=== PATIENT | female | born 1990 | race African-American/Black ===

== ENCOUNTER 2020-06-21 13:42 | Outpatient (CLI) | payer OTHER, SELFPAY ==
--- NOTE | ~2020-06-21 | US_ITS ---
EXAMINATION: US OB /maternal detail DATE: 06/21/2020 15:07 INDICATION: survey TECHNIQUE: Multiple obstetric sonographic images performed. FINDINGS: No prior studies for comparison. There is a single living fetus in vertex presentation. The placenta is anterior without placenta pre via. Placenta is 4.3 cm to the cervix. Amniotic fluid volume is normal. RADHA measures 11.8 cm cm., (No rmal range for gestational age 29.3-21.2 cm) cardiac activity and movement is noted with a heart rate of 165 beats per minute. The following anatomy was identified as normal: 4 chamber heart 3 vessel cord cord insertion kidneys urinary bladder stomach spine diaphragm ventricles cisterna magna cerebellum The following biometric data were obtained: BPD: 42mm corresponds to gestational age 18 weeks 5 days. Head circumference: 150 mm corresponds to gestational age 18 weeks 0 days. Abdominal circumference: 134 mm corresponds to gestational age 18 weeks 6 days. Femur length: 25 mm corresponds to gestational age 17 weeks 4 days. Head circumference to abdominal circumference ratio: 1.12 (normal range for expected gestational age is 1.08-1.27). Estimated weight: 232 grams +/- 35 grams using Hadlock method. IMPRESSION: 1: Single living intrauterine with an estimated gestational age of 18weeks 2days by current ultrasound measurements, with an EDC of 11/20/2020 in vertex presentation. 2. Normal survey. Reviewed, dictated and finalized at location A. OGRAPH MOUNTER IMPRESSION: 1: Single living intrauterine with an estimated gestational age of 18 weeks 2days by current ultrasound measurements, with an EDC of 11/20/2020 in ve rtex presentation. 2. Normal survey.
== END 2020-06-21 13:43 | disposition home or self-care (01) ==
PROVIDERS: Visit Provider Physician Assistant
DX: Z34.92 Encounter for supervision of normal pregnancy, unspecified, second trimester (principal); Z3A.18 18 weeks gestation of pregnancy
CPT/HCPCS: 76805

== ENCOUNTER 2020-08-24 12:46 | Outpatient (CLI) | payer OTHER, SELFPAY ==
--- NOTE | ~2020-08-24 | US_ITS ---
EXAMINATION: US OB follow up DATE: 08/24/2020 13:25 INDICATION: growth assessment during third trimester TECHNIQUE: Real-time ultrasound of the pelvis was performed. The interpreting radiologist was not pre sent for the study. COMPARISON: 06/21/2020 FINDINGS: There is a single living fetus in transverse lie. The placenta is anterior. cardiac a ctivity and movement are noted. heart rate is 147 beats per minute (bpm). The amniotic fl uid index is 17.3 cm which is normal. The following biometric data were obtained: Biparietal diameter (BPD): 7.0 cm; head circumference (HC): 26.0 cm; abdominal circumference (AC): 24 .7 cm; femur length (FL): 4.9 cm. The femoral length to biparietal diameter ration is greater than two standard deviations below the ma in. These measurements are otherwise concordant. Estimated weight is 1172 g +/- 175 g, which correlates with the 64th percentile when 11/20/2020 i s used as estimated date of delivery. As single measurements, these parameters are each equal to the following estimated gestational ages w ith ranges of +/- 2 standard deviations: BPD: 28 weeks 2 days +/- 2 weeks 1 days. HC: 28 weeks 2 days +/- 2 weeks 0 days. AC: 29 weeks 0 days +/- 2 weeks 1 days. FL: 26 weeks 4 days +/- 2 weeks 1 days. estimated gestational age based solely on measurements from this exam is 28 weeks 0 days +/- 2 weeks 0 days. IMPRESSION: 1. Single living fetus in transverse lie. 2. Estimated weight is 1172 g +/- 175 g, which correlates with the 64th percentile when is used as estimated date of delivery. 3. Femoral length to biparietal diameter ratio greater than two standard deviations below the mean. Reviewed, dictated and finalized at location A. NG CHECKER IMPRESSION: 1. Single living fetus in transverse lie. 2. Estimated weight is 1172 g +/- 175 g, which correlates with the 64th p ercentile when 11/20/2020 is used as estimated date of delivery. 3. Femoral length to biparietal diameter ratio greater than two standard deviat ions below the mean.
== END 2020-08-24 12:47 | disposition home or self-care (01) ==
PROVIDERS: Visit Provider Obstetrics & Gynecology
DX: Z34.93 Encounter for supervision of normal pregnancy, unspecified, third trimester (principal); Z36.9 Encounter for antenatal screening, unspecified; Z3A.28 28 weeks gestation of pregnancy
CPT/HCPCS: 76816

== ENCOUNTER 2020-11-21 05:40 | Inpatient (IN) | payer OTHER, SELFPAY ==
[2020-11-21] VITALS (46 sets, daily range): BP systolic 121–162; BP diastolic 67–103; PULSE 51–90; RESP 16; TEMP 35.5–36.5; O2SAT 100; BMI 28.1
--- NOTE | 2020-11-21 06:25 | LDADM ---
This patient, Shawna Rader, was admitted to Labor/Delivery/Recovery 106 on 11/21/20 at 05:40. Plans for labor, pain management and were discussed with patient. Patient/family oriented to hospital policies and general routines including ID bracelet, bed and alarms, visiting hours, pain management, procedures, bathroom and other care routines, personal items, smoking policy, room service/diet and guest tray routines, security routines, and visiting hours. Patient/Family are encouraged to report perceived risks to care and to ask questions if they do not understand what they are told or what they should do. See OBIX for further documentation.
[2020-11-21 06:43] LABS: Basophils Percent Auto 0.2 % (0.2-1.2); Eosinophils Percent Auto 0.7 % (0-4.4); Hematocrit 32.5 % (37.0-47.0); Hemoglobin 10.7 g/dL (12.0-15.0); Immature Granulocyte Absolute 0.01 K/mm3 (0.00-0.031); Immature Granulocyte Percent A 0.2 % (0-0.5); Lymphocytes Percent Auto 32.6 % (18.3-44.2); Mean Corpuscular HGB Conc 32.9 g/dl (32-36); Mean Corpuscular Hemoglobin 27.6 pg (26-34); Mean Platelet Volume 10.9 fl (7.4-10.4); Monocytes Absolute Auto 0.4 K/mm3 (0.1-0.6); Monocytes Percent Auto 9.1 % (2.6-8.5); Neutrophils Absolute Auto 2.5 K/mm3 (1.3-6.7); Neutrophils Percent Auto 57.2 % (45.5-73.1); Platelet Count Result 165 k/mm3 (150-375); Red Blood Count 3.87 M/mm3 (4.2-5.4); Red Cell Distribution Width 13.8 % (11.5-14.5); White Blood Count 4.3 K/mm3 (4.5-10.0)
[2020-11-21] MEDS: LACTATED RINGERS 1,000 ML 125 ML IV CONT ×2 (07:27→13:29)
[2020-11-21] MEDS: OXYTOCIN 30 UNITS/NS 500 ML 30 UNITS/500 ML BAG IV CONT (07:28)
[2020-11-21] MEDS: CLINDAMYCIN 900 MG/D5W 50 ML 900 MG/50 ML PIGGYBACK 50 MG IVPB (07:46)
[2020-11-21 08:11] LABS: Amphetamine Screen Urine Negative (Negative); Barbiturate Screen Urine Negative (Negative); Benzodiazepines Screen Urine Negative (Negative); Cannabinoid Screen Urine Positive (Negative); Cocaine Screen Urine Negative (Negative); Methadone Screen Urine Negative (Negative); Opiate Screen Urine Negative (Negative); Phencyclidine Screen Urine Negative (Negative)
--- NOTE | 2020-11-21 08:11 | PM.IMHP ---
H&P: HPI History of Present Illness Date/Time: 11/21/20 08:11 30-year-old female with history of GBS +, recurrent UTI, TV, BV, cystitis, HPV and prior miscarriage who presents for IOL at 40weeks EGA with low dose pitocin. I explained her condition procedure and risks involved she understands accepts and agrees to proceed she understands maternal or indications for delivery with risks involved including but not limited to bleeding infection injury to bladder bowel baby pelvic vessels DVT pneumonia wound infection UTI risk of anesthesia. She understands risk hemorrhage and risk of shoulder dystocia. Chief Complaint: Term elective induction of labor Review of Systems Review of Systems: All systems reviewed & are unremarkable except as noted in HPI and below PMFSH Past Medical History Medical History (Updated 11/21/20 @ 08:20 by Arsh White MD) Bacterial vaginosis GBS (group B Streptococcus carrier), +RV culture, currently History of HPV infection History of miscarriage History of trichomonal vaginitis History of urinary tract infection Maternal varicella, non-immune Vaginal delivery 10-29-2013, 40 wks 1. F, 6lbs 15oz, Vaginal Surgical History Surgical History (Updated 11/21/20 @ 08:20 by Arsh White MD) History of D&C November 19, 2016 at 10 weeks of History of termination of 2015 at 14 weeks of Family History Family History (Updated 11/21/20 @ 08:20 by Arsh White MD) Other Brain cancer Breast cancer Lung cancer Social History Social History (Updated 11/21/20 @ 08:21 by Arsh White MD) Smoking status: Former smoker Tobacco type: cigarettes Second hand tobacco smoke exposure: Yes Alcohol intake: never Substance use: never Substance use type: does not use Living arrangements: with family Occupation/Education: unemployed Gender identity (if verbalized by the patient): Female Sexual Orientation (if Verbalized by the Patient): Straight or Heterosexual Spiritual care concerns: No Agree to blood products: Yes Meds Home Medications and Allergies Allergies Allergy/AdvReac Type Severity Reaction Status Date / Time Penicillins Allergy Hives Verified 11/21/20 06:51 Vital Signs Vital Signs - 24 hr 11/21/20 06:18 11/21/20 06:35 11/21/20 06:47 Temperature 97.2 F L Pulse Rate 63 68 57 L Blood Pressure 132/72 146/90 H 140/81 11/21/20 07:00 11/21/20 07:30 11/21/20 08:01 Temperature Pulse Rate 57 L 54 L 55 L Blood Pressure 146/89 H 136/85 151/90 H Exam Const: General: cooperative, healthy appearing, comfortable, no acute distress, well developed, alert, awake and Physically active Nutritional Appearance: average body habitus Orientation/consciousness: patient oriented x3 Limitations: no limitations HENMT: Head: normal to inspection Eyes: General: appearance normal, both eyes and all related structures Neck: Neck: normal visual inspection and full ROM Chest: Chest palpation & inspection: normal inspection of the chest Breast/axilla inspection: normal inspection of the breasts Resp: Effort & Inspection: normal respiratory effort Auscultation: clear to auscultation bilaterally Cardio: Palpation: normal PMI Rate: regular rate Rhythm: regular rhythm Heart sounds: S1 normal heart sound present and S2 normal heart sound present GI: Inspection: normal to inspection GI Palp: Yes Soft to palpation Percussion: Yes normal to percussion Auscultation: normal bowel sounds : External Female Exam: normal external appearance Bimanual exam- vagina & uterus: non-tender Manual OB Exam: dilated 1 cm, effaced 50% and station -2 Amniotic Fluid: no fluid Back/Spine/Pelvis: Back: no CVA tenderness Skin: General skin exam: normal color Neuro: General: patient oriented x3, gait normal, tone normal, moves all extremities, Normal light touch and pain sensation, n
--- NOTE | 2020-11-21 08:14 | WPDOBADMIT ---
Obstetrics - Admit Note Admission Note: record reviewed. No pertinent additions to the history and/or any subsequent changes in the physical findings that are not consistent with the expected course of the were found. Additions to the history and/or subsequent changes in the physical findings follow. None. 30-year-old female with history of GBS +, recurrent UTI, TV, BV, cystitis, HPV and prior miscarriage who presents for IOL at 40weeks EGA with low dose pitocin. I explained her condition procedure and risks involved she understands accepts and agrees to proceed she understands maternal or indications for delivery with risks involved including but not limited to bleeding infection injury to bladder bowel baby pelvic vessels DVT pneumonia wound infection UTI risk of anesthesia. She understands risk hemorrhage and risk of shoulder dystocia
--- NOTE | 2020-11-21 08:14 | WPDHPUPDATE1 ---
History and Physical Update Update Date/Time: 11/21/20 08:14 History and Physical has been reviewed, including an updated exam of the patient. There are NO changes in the patient's condition. Risks, benefits, and alternatives have been discussed and questions answered. Patient agrees to proceed with procedure. 30-year-old female with history of GBS +, recurrent UTI, TV, BV, cystitis, HPV and prior miscarriage who presents for IOL at 40weeks EGA with low dose pitocin. I explained her condition procedure and risks involved she understands accepts and agrees to proceed she understands maternal or indications for delivery with risks involved including but not limited to bleeding infection injury to bladder bowel baby pelvic vessels DVT pneumonia wound infection UTI risk of anesthesia. She understands risk hemorrhage and risk of shoulder dystocia
[2020-11-21 08:31] LABS: HIV 1/2 Ab P24 Ag Result Negative (Negative)
[2020-11-21 08:36] LABS: Alanine Aminotransferase 10 U/L (4-35); Albumin Level 3.2 g/dL (3.5-5.1); Alkaline Phosphatase 119 U/L (38-126); Anion Gap 7 mmol/L (8-16); Aspartate Amino Transferase 23 U/L (14-36); Bilirubin,Total 0.5 mg/dL (0.2-1.3); Blood Urea Nitrogen 6 mg/dL (7-17); Calcium 8.5 mg/dL (8.4-10.2); Carbon Dioxide 21 mmol/L (22-30); Chloride 109 mmol/L (98-107); Estimated CRCL calculation 157 ml/min; Estimated Glomerular Filt Rate > 60; Glucose 79 mg/dL (65-105); Potassium 3.7 mmol/L (3.4-5.0); Sodium 137 mmol/L (137-145); Uric Acid 3.6 mg/dL (2.5-7.5)
--- NOTE | 2020-11-21 08:40 | WPDANESEPP ---
Anes - Eval Pre Procedure Procedure: labor epidural Date/Time: 11/21/20 08:40 Surgeon: Cindy Preop Diagnosis: Pain during labor Pre Op Diagnosis: Induction Patient Data Age: 30 Gender: F Height: 5 ft 8 in Weight: 84.09 kg Last Vital Signs Temp 36.2 C L 11/21/20 06:47 Pulse 62 11/21/20 08:31 BP 132/79 11/21/20 08:31 Allergies Allergy/AdvReac Type Severity Reaction Status Date / Time Penicillins Allergy Hives Verified 11/21/20 06:51 Home Medications Medication Instructions Recorded Confirmed Type No Home Medications 11/21/20 11/21/20 History Laboratory Tests 11/21/20 11/21/20 11/21/20 06:31 06:31 07:31 WBC 4.3 K/mm3 L K/mm3 (4.5-10.0) RBC 3.87 M/mm3 L M/mm3 (4.2-5.4) Hgb 10.7 g/dL L g/dL (12.0-15.0) Hct 32.5 % L % (37.0-47.0) MCV 84.0 fl fl (80-100) MCH 27.6 pg pg (26-34) MCHC 32.9 g/dl g/dl (32-36) RDW 13.8 % % (11.5-14.5) Plt Count 165 k/mm3 k/mm3 (150-375) MPV 10.9 fl H fl (7.4-10.4) Immature Gran % (Auto) 0.2 % % (0-0.5) Neut % (Auto) 57.2 % % (45.5-73.1) Lymph % (Auto) 32.6 % % (18.3-44.2) [place] % (Auto) 9.1 % H % (2.6-8.5) Eos % (Auto) 0.7 % % (0-4.4) Baso % (Auto) 0.2 % % (0.2-1.2) Lymph # (Auto) 1.40 K/mm3 K/mm3 (0.9-3.2) [place] # (Auto) 0.4 K/mm3 K/mm3 (0.1-0.6) Eos # (Auto) 0.0 K/mm3 K/mm3 (0-0.3) Baso # (Auto) 0.0 K/mm3 K/mm3 (0.0-0.1) Abs Immat Gran (auto) 0.01 K/mm3 K/mm3 (0.00-0.031) Absolute Neuts (auto) 2.5 K/mm3 K/mm3 (1.3-6.7) Absolute Nucleated RBC 0.0 K/mm3 K/mm3 (0.0-0.012) Nucleated RBC % 0.0 % % (0.0-0.2) Sodium Potassium Chloride Carbon Dioxide Anion Gap BUN Creatinine Estim Creat Clear Calc Estimated GFR Glucose Uric Acid Calcium Total Bilirubin AST ALT Alkaline Phosphatase Total Protein Albumin Urine Opiates Screen Urine Methadone Screen Ur Barbiturates Screen Ur Phencyclidine Scrn Ur Amphetamine Screen U Benzodiazepines Scrn Urine Cocaine Screen U Cannabinoids Screen RPR Pending HIV 1&2 Ab/P24 Ag 4thGn Negative (Negative) 11/21/20 11/21/20 07:31 07:33 WBC RBC Hgb Hct MCV MCH MCHC RDW Plt Count MPV Immature Gran % (Auto) Neut % (Auto) Lymph % (Auto) [place] % (Auto) Eos % (Auto) Baso % (Auto) Lymph # (Auto) [place] # (Auto) Eos # (Auto) Baso # (Auto) Abs Immat Gran (auto) Absolute Neuts (auto) Absolute Nucleated RBC Nucleated RBC % Sodium 137 mmol/L mmol/L (137-145) Potassium 3.7 mmol/L mmol/L (3.4-5.0) Chloride 109 mmol/L H mmol/L (98-107) Carbon Dioxide 21 mmol/L L mmol/L (22-30) Anion Gap 7 mmol/L L mmol/L (8-16) BUN 6 mg/dL L mg/dL (7-17) Creatinine 0.50 mg/dL L mg/dL (0.7-1.0) Estim Creat Clear Calc 157 ml/min ml/min Estimated GFR > 60 (59 - ) Glucose 79 mg/dL mg/dL (65-105) Uric Acid 3.6 mg/dL mg/dL (2.5-7.5) Calcium 8.5 mg/dL mg/dL (8.4-10.2) Total Bilirubin 0.5 mg/dL mg/dL (0.2-1.3) AST 23 U/L U/L (14-36) ALT 10 U/L U/L (4-35) Alkaline Phosphatase 119 U/L U/L (38-126) Total Protein 6.0 g/dL L g/dL (6.3-8.2) Albumin 3.2 g/dL L g/dL (3.5-5.1) Urine [place]
[2020-11-21] MEDS: ceFAZolin 2 GM/D5W 50 ML 2 GM/50 ML BAG IVPB (09:07)
[2020-11-21 09:49] LABS: Rapid Plasma Reagin Non-Reactive (NonReactive)
[2020-11-21] MEDS: fentaNYL CITRATE INJ (*CRX) 100 MCG/2 ML VIAL IV PUSH ×2 (11:42→13:25)
--- NOTE | 2020-11-21 14:37 | P.PCNOB_ITS ---
OB - Delivery Note Procedure Delivery date: 11/21/20 Procedure: Normal spontaneous vertex vaginal delivery a viable male infant and placenta events: Labor Induction Intrapartal events: None Induction method: per pitocin protocol Delivery monitor: external FHT and external uterine Route of delivery: Episiotomy description: None Laceration Description: None Specimen: Yes (Placenta, cord blood, cord blood gases) Quantitative Blood Loss (ml): 50 Anesthesia type: Epidural Disposition: floor Complications: None Narrative: Complete cervical dilation delivery prep completed short 2nd stage normal spontaneous vertex vaginal delivery a viable male infant over an intact perineum anterior shoulder delivered without difficulty delivered and placed onto the maternal abdomen with a short cord the cord was clamped and cut. Spontaneous respirations and cry normal transition handed to the nursery nurse in attendance scores 9 and 9 weight 7 lb 15 length 19 in long taken to the nursery in stable condition normal exam. Cord gas obtained cord blood obtained placenta was then delivered intact with a three-vessel cord with the uterus contracted well Pitocin given intravenously. Cervix vagina checked no sponges left in the vagina rectal sphincter was intact. No cuts tears or lacerations uterus was firm Q BL 50. Mom and baby stable condition. [place] Baby Date of : 11/21/20 Time of : 14:27 Weeks of gestation at delivery: 40 gender: Male (Jayden the 3rd) Weight (pounds): 7 Weight (ounces): 15 presentation: vertex position: Left Occiput Anterior Placenta delivery description: Spontaneous and Normal Configuration cord vessel description: 3 Vessels score one minute: 9 score five minutes: 9 Narrative: Normal transition taken to the nursery in stable condition
[2020-11-21] MEDS: OXYTOCIN 30 UNITS/NS 500 ML 30 UNITS/500 ML BAG 125 UNITS IV CONT (15:03)
[2020-11-21] MEDS: IBUPROFEN 600 MG TABLET PO (18:34)
--- NOTE | 2020-11-21 19:28 | OBPPTRN ---
1640 Patient transferred to post room #282 via W/C. Support person present. Oriented to unit, room, information board, rooming in, admission packet and security measures. Patient verbalizes understanding.
[2020-11-22] VITALS: BP 134/80; PULSE 57; RESP 16; TEMP 36.8; O2SAT 100
[2020-11-22] MEDS: IBUPROFEN 600 MG TABLET PO ×2 (00:37→08:33)
[2020-11-22 04:00] VITALS: BP 138/80; PULSE 52; RESP 16; TEMP 36.7; O2SAT 100
[2020-11-22] MEDS: TETANUS,DIPHTHERIA,AC PERTUSSIS ADULT (0.5 ML) BOOSTRIX IM (04:10)
[2020-11-22 05:44] LABS: Hemoglobin 9.8 g/dL (12.0-15.0)
--- NOTE | 2020-11-22 07:31 | WPDANLDPN2 ---
Anes-Prog Note L&D Date/Time: 11/22/20 07:31 Comfortable throughout: labor and delivery Neuraxial method: epidural Epidural/Spinal procedure site: clean & non-tender Neuro status: Neuro function grossly intact. Cardiovascular status: normal Respiratory status: normal Airway patency: baseline Mental status: baseline Post-Op hydration status: normal Vital Signs: Last Vital Signs Temp 98.1 F 11/22/20 04:00 Pulse 52 L 11/22/20 04:00 Resp 16 11/22/20 04:00 BP 138/80 11/22/20 04:00 Pulse Ox 100 11/22/20 04:00 Pain score (VAS): 06/24 I/O: Intake & Output 11/21/20 11/21/20 11/22/20 15:59 23:59 07:59 Intake Total 1000 500 Output Total 175 Balance 1000 325 Post-procedural complaints: none Patient feedback: Patient satisfied with anesthetic care.
[2020-11-22 08:00] VITALS: BP 133/79; PULSE 72; RESP 18; TEMP 36.6; O2SAT 100
[2020-11-22] MEDS: POLYSACCHARIDE IRON COMPLEX 150 MG CAPSULE PO ×2 (08:33→16:03)
[2020-11-22] MEDS: DOCUSATE SODIUM 100 MG CAPSULE PO ×2 (08:33→16:03)
--- NOTE | 2020-11-22 09:34 | PCCCNOTE ---
Addendum entered by TABITHA Recio 11/22/20 11:47: 1145: Received an email form [facility] that states: Your information has been reviewed and assessed by a Technical Engineer and was also approved by a ovens supervisor. The information you provided did not meet one of the criteria for an investigation (eligible victim, eligible perpetrator, eligible event, or jurisdiction). The information as been documented and will be kept on file. Should you learn of further information or have additional concerns, please feel free to contact us. The final intake ID number for this report is [id number]. Original Note: Care Coordination met with pt. due to THC positive on her admission urine drug screen. Baby Boy's meconium is pending 11/21. URBAN Carpenter at bedside. Pt. states she will be living at home with Baby boy, 7 year old daughter Denny, URBAN Carpenter, and her sister Shawna in [place]. Pt. reports she has support from her family. Pt. reports she has everything needed for and not lacking any supplies. Pt. reports she is already set up with WIC and [facility] [place]. Pt. reports she was not aware that the basket of cookies had THC in them. Pt. denies any prior DCFS involvement. resources were provided to pt. Report was filed with [facility] Online: Report#[id number]. Updates given to KRIS Boland.
[2020-11-22 12:00] VITALS: BP 137/80; PULSE 60; RESP 16; TEMP 37
--- NOTE | 2020-11-22 19:41 | PM.OBPNVD ---
OB - PN: Subj Subjective Date/time seen: 11/22/20 19:41 Patient comments: no complaints and pain well controlled baby status: doing well [place] feeding status: breast and bottle feeding OB - PN: Obj Data Labs CBC & Chem 7: 11/22/20 04:08 11/21/20 07:31 Labs: Laboratory Results - last 24 hr 11/22/20 04:08 Hgb 9.8 L Hct 30.0 L OB - PN A/P Assessment and Plan (1) Term delivered: Code(s): O80 - Encounter for full-term uncomplicated delivery Status: Acute Plan day: 1 Plan: routine care, discharge home and follow up 6 weeks Time Spent With Patient Time: Total time spent is greater than 50% in coordination of care (as documented) at patient's floor/unit and/or counseling patient: Time with patient: less than 15 minutes Review of Systems Review of Systems: All systems reviewed & are unremarkable except as noted in HPI and below Exam Const: General: comfortable Chest: Breast/axilla inspection: normal inspection of the breasts Resp: Effort & Inspection: normal respiratory effort Cardio: Rate: regular rate GI: GI Palp: Yes Soft to palpation : General: Yes no CVA tenderness External Female Exam: normal external appearance Psych: Appearance: grossly normal Mental Status: mental status grossly normal Affect: normal affect Attitude: cooperative Thought content: Yes Normal thought content present
--- NOTE | 2020-11-22 19:42 | PM.OBDSVD ---
DS: Admitting Diagnosis Admitting Diagnosis Admitting Diagnosis: Term Elective induction of labor GBS Varicella nonimmune DS: Discharge Diagnosis Discharge Diagnosis (1) Term delivered: Code(s): O80 - Encounter for full-term uncomplicated delivery Status: Acute (2) Encounter for elective induction of labor: Code(s): Z34.90 - Encounter for supervision of normal , unspecified, unspecified trimester Status: Acute (3) GBS (group B Streptococcus carrier), +RV culture, currently : Code(s): O99.820 - Streptococcus B carrier state complicating Status: Acute (4) Maternal varicella, non-immune: Code(s): O09.899 - Supervision of other high risk pregnancies, unspecified trimester; Z28.3 - Underimmunization status Status: Acute OB - DS: Summary Hospital Course Time spent discussing smoking cessation with patient: 3 to 10 minutes OB Procedures : Ultrasound OB Procedures Intrapartum: Spontaneous Vag Delivery and GBS prophylaxis OB Procedures: : None Peripartum Data Delivery Method: Natural Vaginal Laceration Description: None Episiotomy description: None Procedures: Normal spontaneous vertex vaginal delivery a viable male and placenta complications: none 1: Gender: Male (Jayden the 3rd) Disposition of : home Status at Discharge Functional status at discharge: independent ambulation Overall status at discharge: patient is back to baseline Time Spent with Patient Time attestation: Total time spent providing and/or coordinating discharge services: Time spent: Less than 30 minutes Exam Const: General: cooperative, healthy appearing, comfortable, no acute distress, well developed, alert, awake and Physically active Nutritional Appearance: average body habitus Orientation/consciousness: patient oriented x3 Limitations: no limitations HENMT: Head: normal to inspection Eyes: General: appearance normal, both eyes and all related structures Neck: Neck: normal visual inspection Chest: Chest palpation & inspection: normal inspection of the chest Resp: Effort & Inspection: normal respiratory effort Auscultation: clear to auscultation bilaterally Cardio: Rate: regular rate Rhythm: regular rhythm Heart sounds: S1 normal heart sound present and S2 normal heart sound present GI: Inspection: normal to inspection GI Palp: Yes Soft to palpation Auscultation: normal bowel sounds : External Female Exam: normal external appearance Back/Spine/Pelvis: Back: no CVA tenderness Skin: General skin exam: normal color Neuro: General: patient oriented x3, gait normal, tone normal and moves all extremities Extrem: General: normal to inspection and full ROM Psych: Appearance: grossly normal Mental Status: mental status grossly normal Speech and movement: Normal speech and movement present Affect: normal affect Attitude: cooperative Thought process: Normal thought process present Insight: Good insight present (Psych) Judgement: Good judgement present (Psych) DS: Data Data Completed and Pending Labs on day of discharge: Labs from last 24 hours 11/21/20 11/21/20 11/21/20 07:33 07:31 07:31 WBC RBC Hgb Hct MCV MCH MCHC RDW Plt Count MPV Immature Gran % (Auto) Neut % (Auto) Lymph % (Auto) [place] % (Auto) Eos % (Auto) Baso % (Auto) Lymph # (Auto) [place] # (Auto) Eos # (Auto) Baso # (Auto) Abs Immat Gran (auto) Absolute Neuts (auto) Absolute Nucleated RBC Nucleated RBC % Sodium 137 Potassium 3.7 Chloride 109 H Carbon Dioxide 21 L Anion Gap 7 L BUN 6 L Creatinine 0.50 L Estim Creat Clear Calc 157 Estimated GFR > 60 Glucose 79 Uric Acid 3.6 Calcium 8.5 Total Bilirubin 0.5 AST 23 ALT 10 Alkaline Phosphatase 119 Total Protein 6.0 L
[2020-11-22 20:00] VITALS: BP 133/83; PULSE 65; RESP 16; TEMP 36.8; O2SAT 98
[2020-11-23 11:42] VITALS: BP 132/77; PULSE 64; RESP 16; TEMP 36.8; O2SAT 100
== END 2020-11-22 20:30 | disposition home or self-care (01) | DRG 560 ==
LOC: ANHLDR 14:51 → ANHOB2 16:54
PROVIDERS: Admitting Provider Obstetrics & Gynecology; Visit Provider Obstetrics & Gynecology
DX: O99.824 Streptococcus B carrier state complicating childbirth (principal); O62.3 Precipitate labor; O76 Abnormality in fetal heart rate and rhythm complicating labor and delivery; Z3A.40 40 weeks gestation of pregnancy; Z37.0 Single live birth
CPT/HCPCS: 36415; 80053; 80307; 84550; 85014; 85018; 85025; 86592; 86703; 86850; 86900; 86901; 88307; 90715; A9270; G0432; J0690; J2590; J2795; J3010; J7120